=== PATIENT | female | born 1995 | race Caucasian/White ===

== ENCOUNTER 2021-10-23 17:09 | Emergency (ER) | payer MEDICAID ==
[~2021-10-23] VITALS: Ht 157.5 cm; Wt 77.0 kg
[2021-10-23 17:16] VITALS: BP 113/80
== END 2021-10-23 22:32 | disposition left against medical advice (07) ==
LOC: ER 17:09
DX: Z53.21 Procedure and treatment not carried out due to patient leaving prior to being seen by health care provider (principal)